=== PATIENT | female | born 1955 | race Caucasian/White ===

== ENCOUNTER → 2016-03-27 | Outpatient (CLI) | payer OTHER ==
[~2016-03-27] MED LIST: GABAPENTIN100 MG PO; HYDROCHLOROTHIA25 M2 PO; KLOR-CON 1010 MEQ PO; LISINOPRIL20 MG PO; NAPROSYN500 MG PO; OXYBUTYNIN 5 MG5 M2 PO; PAXIL10 MG PO
== END ==
LOC: RAD 10:21
DX: M17.0 Bilateral primary osteoarthritis of knee (principal); M16.12 Unilateral primary osteoarthritis, left hip; M25.562 Pain in left knee; M25.561 Pain in right knee; M77.9 Enthesopathy, unspecified

== ENCOUNTER → 2017-05-22 | Outpatient (CLI) | payer OTHER | LOC: MRI 09:44 | DX: M51.36 Other intervertebral disc degeneration, lumbar region (principal) ==

== ENCOUNTER → 2018-12-21 | Outpatient (CLI) | payer OTHER ==
[~2018-12-21] MED LIST changes: +ROSUVASTATIN CA20 MG PO; +VITAMIN D1000 UNI2 PO
== END ==
LOC: NUC 10:09
DX: Z12.31 Encounter for screening mammogram for malignant neoplasm of breast (principal); M81.0 Age-related osteoporosis without current pathological fracture; Z78.0 Asymptomatic menopausal state

== ENCOUNTER → 2018-12-28 | Outpatient (CLI) | payer OTHER ==
[~2018-12-28] VITALS: Ht 167.6 cm; Wt 95.7 kg
--- NOTE | 2018-12-29 12:41 | P ---
[facility] [place] [address] PROCEDURE REPORT Name: RODERICK HELMS Room #: REG SHANAE Landry.#: [id number] Admission: 12/28/18 Attend Phys: Dejon Montague Discharge: Date of : 55 Report #: [id number] THIS REPORT FOR: //name// CC: Dejon Villegas MD DATE OF SERVICE: 12/28/2018 PROCEDURE PERFORMED: Colonoscopy with biopsies. HISTORY OF PRESENT ILLNESS: The patient is a 63-year-old female with a history of colon polyps, last colonoscopy in 2007. Denies any symptoms. No family history of colon cancer. DESCRIPTION OF PROCEDURE: The risks and benefits of the procedure were explained to the patient, those risks including but not limited to bleeding, perforation, the risk of sedation. She understood these risks and gave informed consent. Sedation was given using propofol per Anesthesia. Next, a digital rectal exam was initially performed, which was normal. Next, using a standard Olympus colonoscope, the scope was placed in the patient's anus and advanced under direct vision to the cecum. The overall prep was excellent. The cecum and ileocecal valve were normal in appearance. Ascending colon was normal. In the transverse colon, a 5 mm sessile polyp was noted. This was removed with cold forceps, otherwise normal. The descending and sigmoid colon were normal. The rectal mucosa was normal. On retroflexion, small nonbleeding internal hemorrhoids were noted. The scope was then withdrawn and the procedure terminated. The patient tolerated the procedure well. IMPRESSION: 1. Small colonic polyp. 2. Small internal hemorrhoids. 3. Otherwise, normal colonoscopy. RECOMMENDATIONS: 1. Await biopsy results. 2. If polyp is hyperplastic, repeat in 10 years; if adenomatous polyp, repeat in 5 years. Thank you for allowing me to participate in her care. <ELECTRONICALLY SIGNED> By: Dejon Sheffield MD 12/29/18 1241 [id number] 2042 Dejon Sheffield MD /nt
--- NOTE | 2018-12-29 16:06 | PATH ---
[facility] [address] [place] [address] PATHOLOGY RPT PROCEDURE Name: RADHA HELMS Room #: REG [facility] M.R.#: [id number] Admission: 12/28/18 Date of : 55 Discharge: Report #: [id number] Path Case #: [id number] [facility] Accession Number: [id number] . 01 Material submitted: . colon - TRANSVERSE COLON POLYP. Modifiers: transverse . 01 Clinical history: . History of polyps . 02 Diagnosis: Polyp, transverse colon polyp, endoscopic biopsy: - Tubular adenoma. - Negative for high-grade dysplasia. (IUV:casey; 12/29/2018) QMS 12/29/2018 1502 Local . 02 Electronically signed: . Xenia Milian MD, Pathologist NPI- [id number] . 01 Gross description: . The specimen is received in formalin, labeled "Radha [place], transverse colon polyp". Received are two segments of pale best soft tissue ranging in size from 0.3 to 0.4 cm in maximum dimensions. The specimen is submitted entirely in cassette A1. (CAA; 12/28/2018) QAC/QAC 12/28/2018 1419 Local . 02 Pathologist provided ICD-10: D12.3 . 02 CPT . 013618 Specimen Comment: A courtesy copy of this report has been sent to Specimen Comment: [phone], . Specimen Comment: Report sent to / DR LINDQUIST Performed at: [address], [place], [place] [id number] MD Humberto Ritchie MD Phone: [phone] Performed at: [address] [id number] MD Xenia Milian MD Phone: [phone]
== END | disposition home or self-care (01) ==
LOC: GI
DX: Z12.11 Encounter for screening for malignant neoplasm of colon (principal); Z86.010 Personal history of colon polyps; D12.3 Benign neoplasm of transverse colon; K64.8 Other hemorrhoids; I10 Essential (primary) hypertension; G47.30 Sleep apnea, unspecified; F17.210 Nicotine dependence, cigarettes, uncomplicated; E78.5 Hyperlipidemia, unspecified; Z90.49 Acquired absence of other specified parts of digestive tract; Z98.890 Other specified postprocedural states; Z79.899 Other long term (current) drug therapy; Z88.0 Allergy status to penicillin
CPT/HCPCS: 62110; 62900

== ENCOUNTER → 2020-01-13 | Outpatient (CLI) | payer OTHER | LOC: BC 10:53 | PROVIDERS: ATTEND Neuromusculoskeletal Medicine & OMM | DX: Z12.31 Encounter for screening mammogram for malignant neoplasm of breast (principal) ==

== ENCOUNTER → 2021-01-12 | Outpatient (CLI) | payer OTHER | LOC: BC 09:47 | PROVIDERS: ATTEND Neuromusculoskeletal Medicine & OMM | DX: Z12.31 Encounter for screening mammogram for malignant neoplasm of breast (principal) ==